=== PATIENT | male | born 1980 | race Caucasian/White ===

== ENCOUNTER 2019-03-05 09:57 | Emergency (ER) | payer OTHER ==
[~2019-03-05] VITALS: Ht 180.3 cm; Wt 85.8 kg
[~2019-03-05 09:57] MED LIST: BUPR100T7 PO; MIRT15TA PO; OLAN10TA7 PO; OLAN5TAB5 PO
[2019-03-05 10:17] VITALS: Ht 180.3 cm; Wt 85.8 kg
[2019-03-05] MEDS ORDERED: LORAZEPAM 1 MG TAB PO ONE ×2 (11:00→16:30)
[2019-03-05] MEDS: OLANZAPINE (ODT) 5 MG TAB ODT SCH (15:42)
[2019-03-05] MEDS ORDERED: MIRTAZAPINE 15 MG TAB PO SCH (21:00)
[2019-03-05] MEDS ORDERED: OLANZAPINE (ODT) 5 MG TAB ODT SCH (21:00)
[2019-03-06] MEDS: OLANZAPINE (ODT) 5 MG TAB ODT SCH (09:20)
[2019-03-06] MEDS ORDERED: LORAZEPAM 1 MG TAB PO ONE (15:00)
[2019-03-06 15:56] VITALS: BP 138/74; PULSE 97; RESP 16
== END 2019-03-06 16:16 ==
LOC: E/R 09:57
DX: F41.9 Anxiety disorder, unspecified (principal); R40.2142 Coma scale, eyes open, spontaneous, at arrival to emergency department; R40.2362 Coma scale, best motor response, obeys commands, at arrival to emergency department; R40.2252 Coma scale, best verbal response, oriented, at arrival to emergency department; R45.851 Suicidal ideations; Z87.891 Personal history of nicotine dependence
CPT/HCPCS: 36415; 73610; 80053; 80307; 81003; 85025; Z7502; Z7610